=== PATIENT | female | born 2000 | race Caucasian/White ===

== ENCOUNTER 2022-08-26 21:09 | Emergency (ER) | payer OTHER ==
[~2022-08-26] VITALS: Ht 170.2 cm; Wt 86.2 kg
[2022-08-27 00:31] VITALS: BP 134/72
[2022-08-27] MEDS ORDERED: HYDROCODONE/APAP 5/325MG TABLET ONE (01:27)
[2022-08-27] MEDS ORDERED: IBUPROFEN 600 MG TABLET ONE (01:27)
[2022-08-27] MEDS: IBUPROFEN 600 MG TABLET PO ONE (01:29)
[2022-08-27] MEDS: HYDROCODONE/APAP 5/325MG TABLET PO ONE (01:29)
[2022-08-27] MEDS ORDERED: TRAM50TA2 PO (02:38)
[2022-08-27] MEDS ORDERED: IBUP-1955 PO (02:38)
--- NOTE | 2022-08-27 02:44 | NUR ---
Patient discharged to home in stable condition. Written and verbal after care instructions given. Patient verbalizes understanding of instruction.
== END 2022-08-27 02:44 | disposition home or self-care (01) ==
LOC: ER 21:12
DX: R07.81 Pleurodynia (principal); J06.9 Acute upper respiratory infection, unspecified; Z60.2 Problems related to living alone
CPT/HCPCS: 99283; 71100; J7060